=== PATIENT | male | born 1935 | race Caucasian/White ===

== ENCOUNTER 2023-08-05 16:25 | Inpatient (IN) | payer OTHER ==
[~2023-08-05] VITALS: Ht 180.3 cm; Wt 97.2 kg
[~2023-08-05 16:25] MED LIST: FINA5TAB4 PO; FURO40TA4 PO; LISI40TA16 PO; PRAV20TA3 PO; RIV15T PO; TAMS0.4C36 PO
[2023-08-05] MEDS ORDERED: NITROGLYCERIN 0.4 MG SL TAB SL PRN (17:15)
[2023-08-05] MEDS ORDERED: HYDROcodone-ACET 5/325MG TAB PO PRN (17:15)
[2023-08-05] MEDS ORDERED: ONDANSETRON HCL 4 MG/2 ML VIAL IV PRN (17:15)
[2023-08-05] MEDS ORDERED: MORPHINE SULFATE INJ 2 MG/ml SYRG IV PRN ×2 (17:15)
[2023-08-05] MEDS ORDERED: ACETAMINOPHEN 325 MG TAB PO PRN (17:15)
[2023-08-05 19:28] VITALS: BP 95/40; PULSE 74; RESP 18; TEMP 97.9; O2SAT 99
[2023-08-05 19:36] LABS: % Iron Saturation 21.9 % (20-55)
[2023-08-05] MEDS: cefTRIAXone 1GM/50ML D5W 50 ML IV SCH (20:25)
[2023-08-05 20:34] LABS: INR 1.18 (0.9-1.15); Prothrombin Time 12.4 sec (9.3-11.8)
[2023-08-05] MEDS: PANTOPRAZOLE 40 MG/10 ML VIAL INJ IV SCH (20:58)
[2023-08-05] MEDS: SODIUM CHLORIDE 0.9% 1,000 ML IV SCH (20:58)
[2023-08-05 21:00] VITALS: BP 108/38; PULSE 72; RESP 16; TEMP 98.2; O2SAT 100
[2023-08-05 22:19] VITALS: BP 93/35; PULSE 68; RESP 18; TEMP 98.9
[2023-08-05 22:34] VITALS: BP 92/35; PULSE 73; RESP 20; TEMP 97.6
[2023-08-05 22:37] VITALS: BP 87/34; PULSE 74; RESP 18; TEMP 98.1
[2023-08-06] VITALS (12 sets, daily range): BP systolic 99–137; BP diastolic 37–64; PULSE 63–90; RESP 16–20; TEMP 97.2–98.4; O2SAT 91–99
[2023-08-06 06:40] LABS: Urine Bacteria None Seen /hpf (None Seen)
[2023-08-06 07:08] LABS: Urine Blood Negative /uL (Negative); Urine Clarity Clear (Clear); Urine Color Light-Yellow (Yellow); Urine Hyaline Cast FEW /lpf (0 - 2); Urine Protein, UAD Negative (Negative); Urine Specific Gravity 1.008 (1.001-1.035); Urine Urobilinogen Normal (Negative); Urine WBC 4 /hpf (0 - 3)
[2023-08-06 07:18] LABS: Basophils # (auto) 0.1 10 ^3/uL (0-0.2); Eosinophils # (auto) 0.3 10 ^3/uL (0-0.8); Eosinophils % (auto) 3.8 % (0.0-7.0); Hematocrit 22.7 % (41.0-53.0); Hemoglobin 7.6 g/dL (13.5-17.5); Lymphocytes # (auto) 1.3 10 ^3/uL (0.4-5.4); Lymphocytes % (auto) 16.5 % (10.0-50.0); Mean Corpuscular Hgb Conc. 33.4 g/dL (32.0-36.0); Monocytes # (auto) 0.9 10 ^3/uL (0-1.3); Monocytes % (auto) 11.2 % (0.0-12.0); Neutrophils # (auto) 5.4 10 ^3/uL (1.6-8.6); Neutrophils % (auto) 67.5 % (37.0-80.0); Red Blood Cells 2.44 10^6/uL (4.5-5.90); Red Cell Distribution Width 14.9 % (11.8-14.3); White Blood Cell 7.9 10^3/uL (4.4-10.8)
[2023-08-06 07:42] LABS: Albumin 2.6 g/dL (3.2-4.8); Alkaline Phosphatase 75 U/L (46-116); Anion Gap 6 (5-15); BUN/Creatinine Ratio 29.5 (10.0-20.0); Calcium 8.5 mg/dL (8.5-10.1); Carbon Dioxide 29 mmol/L (20-30); Chloride 101 mmol/L (98-107); Glucose 89 mg/dL (74-106); Potassium 4.3 mmol/L (3.5-5.1); Sodium 136 mmol/L (136-145)
[2023-08-06 07:43] LABS: Aspartate Aminotransferase 12 U/L (13-40); Bilirubin, Total 0.4 mg/dL (0.2-1.0)
[2023-08-06 07:48] LABS: Alanine Aminotransferase < 9 U/L (7-40)
[2023-08-06 07:51] LABS: Blood Urea Nitrogen 82 mg/dL (9-23)
[2023-08-06] MEDS ORDERED: diphenhdrAMINE HCL 50 MG/1 ML VL ONE (09:32)
[2023-08-06] MEDS ORDERED: SODIUM CHLORIDE LOCK 10 ML ONE (09:32)
[2023-08-06] MEDS: LIDOCAINE VISCOUS 2% 15ML UD ONE (13:31)
[2023-08-06] MEDS: MIDAZOLAM HCL 5 MG/ML-1ML VIAL ONE (13:36)
[2023-08-06] MEDS: fentaNYL CITRATE 100 MCG/2 ML VL ONE (13:36)
[2023-08-06] MEDS ORDERED: IRON SUCROSE COMPLEX 100 ML IV SCH (14:00)
[2023-08-06] MEDS: SUCRALFATE 1 GM/10 ML ORAL SUSP GT SCH (21:01)
[2023-08-07] VITALS (8 sets, daily range): BP systolic 103–127; BP diastolic 45–55; PULSE 74–84; RESP 16–20; TEMP 97.9–98.5; O2SAT 92–100
[2023-08-07 07:25] LABS: Anion Gap 4 (5-15); Carbon Dioxide 29 mmol/L (20-30); Chloride 106 mmol/L (98-107); Potassium 4.5 mmol/L (3.5-5.1); Sodium 139 mmol/L (136-145)
[2023-08-07 07:26] LABS: Calcium 8.7 mg/dL (8.5-10.1)
[2023-08-07 07:31] LABS: BUN/Creatinine Ratio 26.8 (10.0-20.0); Glucose 89 mg/dL (74-106)
[2023-08-07 07:35] LABS: Blood Urea Nitrogen 62 mg/dL (9-23)
[2023-08-07 07:36] LABS: Basophils # (auto) 0.1 10 ^3/uL (0-0.2); Basophils % (auto) 0.7 % (0.0-2.0); Eosinophils # (auto) 0.2 10 ^3/uL (0-0.8); Eosinophils % (auto) 2.4 % (0.0-7.0); Hematocrit 24.9 % (41.0-53.0); Hemoglobin 7.9 g/dL (13.5-17.5); Lymphocytes # (auto) 0.9 10 ^3/uL (0.4-5.4); Lymphocytes % (auto) 9.2 % (10.0-50.0); Mean Corpuscular Hemoglobin 30.5 pg (28.0-32.0); Mean Corpuscular Hgb Conc. 31.7 g/dL (32.0-36.0); Mean Corpuscular Volume 96.2 fL (80.0-100.0); Monocytes # (auto) 0.9 10 ^3/uL (0-1.3); Monocytes % (auto) 9.3 % (0.0-12.0); Neutrophils # (auto) 7.9 10 ^3/uL (1.6-8.6); Neutrophils % (auto) 78.4 % (37.0-80.0); Nucleated Red Blood Cells % 0.2 %; Red Blood Cells 2.59 10^6/uL (4.5-5.90); Red Cell Distribution Width 14.9 % (11.8-14.3)
[2023-08-07] MEDS: SODIUM FERR GLUC 62.5MG/5ML 125 MG in SODIUM CHL 0.9% 100 ML IV SCH (12:00)
[2023-08-07] MEDS: SODIUM CHLORIDE 0.9% 1,000 ML IV ONE (13:59)
[2023-08-08 01:00] VITALS: BP 113/43; PULSE 77; RESP 17; TEMP 98.1; O2SAT 96
[2023-08-08 05:00] VITALS: BP 126/56; PULSE 93; RESP 16; TEMP 98; O2SAT 94
[2023-08-08 07:12] LABS: Chloride 108 mmol/L (98-107); Potassium 4.2 mmol/L (3.5-5.1); Sodium 143 mmol/L (136-145)
[2023-08-08 07:13] LABS: Anion Gap 3 (5-15); Carbon Dioxide 32 mmol/L (20-30)
[2023-08-08 07:14] LABS: Calcium 8.6 mg/dL (8.5-10.1)
[2023-08-08 07:18] LABS: Glucose 105 mg/dL (74-106)
[2023-08-08 07:19] LABS: BUN/Creatinine Ratio 32.3 (10.0-20.0); Blood Urea Nitrogen 62 mg/dL (9-23)
[2023-08-08 08:00] VITALS: PULSE 79; PULSE 81; RESP 16; O2SAT 98
[2023-08-08 09:00] VITALS: BP 90/53; PULSE 81; RESP 16; TEMP 98.3; O2SAT 98
[2023-08-08 13:00] VITALS: BP 124/55; PULSE 75; RESP 16; TEMP 98.2; O2SAT 98
[2023-08-08] MEDS ORDERED: PANT40TA2 PO (14:24)
[2023-08-08] MEDS ORDERED: SUCR1SUS26 GT (14:24)
[2023-08-08 15:43] VITALS: BP 104/68; PULSE 76; RESP 20; TEMP 97.5; O2SAT 97
== END 2023-08-08 16:20 | disposition home or self-care (01) | DRG 368 ==
LOC: CENTRAL 16:25 → TELE-CENTR 08-06 18:01
PROVIDERS: ADMIT Internal Medicine; ATTEND Internal Medicine
PROC: 30233N1 Transfusion of Nonautologous Red Blood Cells into Peripheral Vein, Percutaneous Approach (ICD-10-PCS; principal; 2023-08-05)
PROC: 0DJ08ZZ Inspection of Upper Intestinal Tract, Via Natural or Artificial Opening Endoscopic (ICD-10-PCS; 2023-08-06)
DX: K20.91 Esophagitis, unspecified with bleeding (principal); J96.21 Acute and chronic respiratory failure with hypoxia; D62 Acute posthemorrhagic anemia; N17.9 Acute kidney failure, unspecified; I95.9 Hypotension, unspecified; D50.9 Iron deficiency anemia, unspecified; I12.9 Hypertensive chronic kidney disease with stage 1 through stage 4 chronic kidney disease, or unspecified chronic kidney disease; E78.5 Hyperlipidemia, unspecified; N18.32 Chronic kidney disease, stage 3b; E88.09 Other disorders of plasma-protein metabolism, not elsewhere classified; N47.8 Other disorders of prepuce; K44.9 Diaphragmatic hernia without obstruction or gangrene; N40.0 Benign prostatic hyperplasia without lower urinary tract symptoms; Z85.118 Personal history of other malignant neoplasm of bronchus and lung; Z85.820 Personal history of malignant melanoma of skin; Z86.718 Personal history of other venous thrombosis and embolism; Z79.01 Long term (current) use of anticoagulants
CPT/HCPCS: 36415; 43235; 76775; 80048; 80053; 81001; 82270; 83540; 83550; 85025; 85610; 86850; 86900; 86901; 86920; 87081; 87086; 97110; 97116; 97163; C9113; G0378; J2250

== ENCOUNTER 2023-08-17 11:10 | Inpatient (IN) | payer OTHER ==
[~2023-08-17] VITALS: Ht 172.7 cm; Wt 104.1 kg
[~2023-08-17 11:10] MED LIST changes: +PANT40TA2 PO; -RIV15T PO; +SUCR1SUS26 GT
[2023-08-17] MEDS: SODIUM CHLORIDE 0.9% 1,000 ML IV ONE (11:44)
[2023-08-17 12:03] LABS: Chloride 100 mmol/L (98-107); Potassium 3.2 mmol/L (3.5-5.1); Sodium 140 mmol/L (136-145)
[2023-08-17 12:04] LABS: Anion Gap 9 (5-15); Carbon Dioxide 31 mmol/L (20-30)
[2023-08-17 12:05] LABS: Calcium 9.1 mg/dL (8.5-10.1)
[2023-08-17 12:09] LABS: Glucose 105 mg/dL (74-106)
[2023-08-17 12:10] LABS: BUN/Creatinine Ratio 22.6 (10.0-20.0); Blood Urea Nitrogen 66 mg/dL (9-23)
[2023-08-17 12:19] LABS: Lactic Acid w/Reflex 2.3 mmol/L (0.4-2.0)
[2023-08-17 12:23] LABS: Basophils # (auto) 0 10 ^3/uL (0-0.2); Basophils % (auto) 0.4 % (0.0-2.0); Eosinophils # (auto) 0.3 10 ^3/uL (0-0.8); Eosinophils % (auto) 2.9 % (0.0-7.0); Hematocrit 29.3 % (41.0-53.0); Hemoglobin 9.8 g/dL (13.5-17.5); Lymphocytes # (auto) 0.9 10 ^3/uL (0.4-5.4); Lymphocytes % (auto) 10.4 % (10.0-50.0); Mean Corpuscular Hemoglobin 31.3 pg (28.0-32.0); Mean Corpuscular Hgb Conc. 33.3 g/dL (32.0-36.0); Mean Corpuscular Volume 93.9 fL (80.0-100.0); Monocytes # (auto) 0.7 10 ^3/uL (0-1.3); Monocytes % (auto) 7.6 % (0.0-12.0); Neutrophils % (auto) 78.7 % (37.0-80.0); Nucleated Red Blood Cells % 0.1 %; Red Blood Cells 3.12 10^6/uL (4.5-5.90); Red Cell Distribution Width 14.5 % (11.8-14.3); White Blood Cell 8.9 10^3/uL (4.4-10.8)
[2023-08-17 12:53] LABS: COVID19 ANTIGEN SOFIA FIA NEGATIVE (NEGATIVE)
[2023-08-17 13:05] VITALS: PULSE 77; RESP 20; O2SAT 94
[2023-08-17] MEDS ORDERED: MORPHINE SULFATE INJ 2 MG/ml SYRG IV PRN ×2 (14:30)
[2023-08-17] MEDS ORDERED: NITROGLYCERIN 0.4 MG SL TAB SL PRN (14:30)
[2023-08-17] MEDS ORDERED: ACETAMINOPHEN 325 MG TAB PO PRN (14:30)
[2023-08-17] MEDS ORDERED: ONDANSETRON HCL 4 MG/2 ML VIAL IV PRN (14:30)
[2023-08-17] MEDS: SODIUM CHLORIDE 0.9% 1,000 ML IV SCH (14:34)
[2023-08-17 16:10] LABS: Urine Amorphous Crystal FEW /hpf (None Seen); Urine Bacteria FEW /hpf (None Seen); Urine Blood Negative /uL (Negative); Urine Clarity Turbid (Clear); Urine Color Light-Yellow (Yellow); Urine Hyaline Cast MOD /lpf (0 - 2); Urine Mucus FEW (None Seen); Urine Protein, UAD TRACE (Negative); Urine Specific Gravity 1.013 (1.001-1.035); Urine Urobilinogen Normal (Negative); Urine WBC 21 /hpf (0 - 3)
[2023-08-17] MEDS: HYDROcodone-ACET 5/325MG TAB PO PRN (18:01)
[2023-08-17 19:25] VITALS: PULSE 77; RESP 20; O2SAT 94
[2023-08-17] MEDS: cefTRIAXone 1GM/50ML D5W 50 ML IV SCH (22:12)
[2023-08-18 05:06] LABS: Basophils # (auto) 0 10 ^3/uL (0-0.2); Basophils % (auto) 0.6 % (0.0-2.0); Eosinophils # (auto) 0.5 10 ^3/uL (0-0.8); Eosinophils % (auto) 6.5 % (0.0-7.0); Hematocrit 26.3 % (41.0-53.0); Hemoglobin 8.7 g/dL (13.5-17.5); Lymphocytes # (auto) 1.2 10 ^3/uL (0.4-5.4); Lymphocytes % (auto) 15.5 % (10.0-50.0); Mean Corpuscular Hemoglobin 30.8 pg (28.0-32.0); Mean Corpuscular Hgb Conc. 33.1 g/dL (32.0-36.0); Mean Corpuscular Volume 93.1 fL (80.0-100.0); Monocytes # (auto) 0.7 10 ^3/uL (0-1.3); Monocytes % (auto) 9.7 % (0.0-12.0); Neutrophils # (auto) 5.1 10 ^3/uL (1.6-8.6); Neutrophils % (auto) 67.7 % (37.0-80.0); Nucleated Red Blood Cells % 0.1 %; Red Blood Cells 2.82 10^6/uL (4.5-5.90); Red Cell Distribution Width 14.3 % (11.8-14.3); White Blood Cell 7.5 10^3/uL (4.4-10.8)
[2023-08-18 05:16] LABS: Alanine Aminotransferase 10 U/L (7-40); Albumin 2.9 g/dL (3.2-4.8); Alkaline Phosphatase 67 U/L (46-116); Anion Gap 9 (5-15); Aspartate Aminotransferase 29 U/L (13-40); BUN/Creatinine Ratio 20.4 (10.0-20.0); Calcium 8.8 mg/dL (8.5-10.1); Carbon Dioxide 29 mmol/L (20-30); Chloride 102 mmol/L (98-107); Glucose 96 mg/dL (74-106); Potassium 2.9 mmol/L (3.5-5.1); Sodium 140 mmol/L (136-145)
[2023-08-18 05:17] LABS: Bilirubin, Total 0.3 mg/dL (0.2-1.0)
[2023-08-18 05:18] LABS: Blood Urea Nitrogen 53 mg/dL (9-23)
[2023-08-18 07:39] VITALS: PULSE 68; RESP 16; O2SAT 93
[2023-08-18 15:35] VITALS: BP 121/56; PULSE 77; RESP 17; TEMP 98.5; O2SAT 97
[2023-08-18 17:00] VITALS: BP 121/56; PULSE 77; RESP 17; TEMP 98.5; O2SAT 97
[2023-08-18 20:00] VITALS: PULSE 64; PULSE 76; RESP 20; O2SAT 98
[2023-08-18 21:00] VITALS: BP 124/45; PULSE 64; RESP 20; TEMP 98; O2SAT 98
[2023-08-19] VITALS (9 sets, daily range): BP systolic 105–132; BP diastolic 43–56; PULSE 60–93; RESP 15–18; TEMP 97.8–98.8; O2SAT 93–98
[2023-08-19] MEDS: POTASSIUM CHL 20 Meq TABLET PO ONE (16:11)
[2023-08-20 01:00] VITALS: BP 137/50; PULSE 70; RESP 17; TEMP 98.5; O2SAT 97
[2023-08-20 05:00] VITALS: BP 115/42; PULSE 77; RESP 17; TEMP 98.3; O2SAT 97
[2023-08-20 07:26] LABS: Anion Gap 2 (5-15); Carbon Dioxide 37 mmol/L (20-30); Chloride 105 mmol/L (98-107); Potassium 3.3 mmol/L (3.5-5.1); Sodium 144 mmol/L (136-145)
[2023-08-20 07:32] LABS: BUN/Creatinine Ratio 21.1 (10.0-20.0); Blood Urea Nitrogen 40 mg/dL (9-23); Glucose 109 mg/dL (74-106)
[2023-08-20 08:00] VITALS: PULSE 65; PULSE 67; RESP 18; O2SAT 99
[2023-08-20 09:00] VITALS: BP 123/47; PULSE 67; RESP 18; TEMP 98.2; O2SAT 99
[2023-08-20 12:42] VITALS: BP 135/50; PULSE 72; RESP 18; TEMP 98.3; O2SAT 97
[2023-08-20 17:16] VITALS: BP 121/52; PULSE 75; RESP 18; TEMP 99.1; O2SAT 98
== END 2023-08-20 19:40 | DRG 682 ==
LOC: EDBD 11:10 → ER 11:10 → EDUNIT# 11:10 → TELE 14:26 → ER 14:26 → TELE-CENTR 08-18 15:47
PROVIDERS: ADMIT Internal Medicine; ATTEND Internal Medicine
DX: N17.0 Acute kidney failure with tubular necrosis (principal); G93.41 Metabolic encephalopathy; J96.21 Acute and chronic respiratory failure with hypoxia; I21.A1 Myocardial infarction type 2; N39.0 Urinary tract infection, site not specified; J98.11 Atelectasis; J90 Pleural effusion, not elsewhere classified; I13.0 Hypertensive heart and chronic kidney disease with heart failure and stage 1 through stage 4 chronic kidney disease, or unspecified chronic kidney disease; E87.20 Acidosis, unspecified; E86.0 Dehydration; D64.9 Anemia, unspecified; N18.9 Chronic kidney disease, unspecified; E78.5 Hyperlipidemia, unspecified; K21.9 Gastro-esophageal reflux disease without esophagitis; Z20.822 Contact with and (suspected) exposure to COVID-19; E66.9 Obesity, unspecified; N40.0 Benign prostatic hyperplasia without lower urinary tract symptoms; E77.8 Other disorders of glycoprotein metabolism; I50.9 Heart failure, unspecified; Z85.118 Personal history of other malignant neoplasm of bronchus and lung; Z86.718 Personal history of other venous thrombosis and embolism; Z99.81 Dependence on supplemental oxygen; Z87.891 Personal history of nicotine dependence; Z68.34 Body mass index [BMI] 34.0-34.9, adult; Z90.2 Acquired absence of lung [part of]
CPT/HCPCS: 36415; 71045; 80048; 80053; 81001; 83605; 83735; 84484; 85025; 87040; 87081; 87086; 87426; 93005; 93306; 96360; 97163; G0378

== ENCOUNTER 2023-09-29 16:39 | Inpatient (IN) | payer OTHER ==
[~2023-09-29] VITALS: Ht 172.7 cm; Wt 95.0 kg
[~2023-09-29 16:39] MED LIST changes: -FURO40TA4 PO
[2023-09-29] MEDS: SODIUM CHLORIDE 0.9% 1,000 ML IV ONE (17:00)
[2023-09-29 17:39] VITALS: PULSE 86; RESP 18; O2SAT 96
[2023-09-29 17:48] LABS: Basophils # (auto) 0 10 ^3/uL (0-0.2); Basophils % (auto) 0.6 % (0.0-2.0); Eosinophils # (auto) 0.2 10 ^3/uL (0-0.8); Eosinophils % (auto) 2.6 % (0.0-7.0); Hemoglobin 8.9 g/dL (13.5-17.5); Lymphocytes % (auto) 14.2 % (10.0-50.0); Mean Corpuscular Hemoglobin 28.4 pg (28.0-32.0); Monocytes # (auto) 0.6 10 ^3/uL (0-1.3); Monocytes % (auto) 7.9 % (0.0-12.0); Neutrophils # (auto) 5.4 10 ^3/uL (1.6-8.6); Neutrophils % (auto) 74.7 % (37.0-80.0); Red Blood Cells 3.14 10^6/uL (4.5-5.90); Red Cell Distribution Width 15.5 % (11.8-14.3); White Blood Cell 7.2 10^3/uL (4.4-10.8)
[2023-09-29 18:07] LABS: Albumin 3.5 g/dL (3.2-4.8); Alkaline Phosphatase 67 U/L (46-116); Anion Gap 7 (5-15); Aspartate Aminotransferase < 8 U/L (13-40); Bilirubin, Total 0.3 mg/dL (0.2-1.0); Blood Urea Nitrogen 56 mg/dL (9-23); Calcium 9.1 mg/dL (8.7-10.4); Carbon Dioxide 27 mmol/L (20-30); Chloride 108 mmol/L (98-107); Glucose 131 mg/dL (74-106); Potassium 5.5 mmol/L (3.5-5.1); Sodium 142 mmol/L (136-145); Total Protein 6.1 g/dL (5.7-8.2)
[2023-09-29 18:14] LABS: Alanine Aminotransferase 9 U/L (7-40)
[2023-09-29 18:20] LABS: Lactic Acid w/Reflex 2.3 mmol/L (0.4-2.0)
[2023-09-29] MEDS: ALBUTEROL SULF 2.5 MG/0.5ML(0.5%) NEB SOLN NEB ONE (18:42)
[2023-09-29] MEDS: DEXTROSE (50%) 50ML SYRG IV ONE (18:53)
[2023-09-29] MEDS: InsuLIN REG 1unit/0.01ml Soln (100units/ml) IV ONE (18:54)
[2023-09-29] MEDS: FUROSEMIDE 20 MG/2 ML VIAL IV ONE (18:54)
[2023-09-29] MEDS: NOREPINEPHRINE 8 MG/250ML KIT 250 ML IV ONE (21:04)
[2023-09-29] MEDS: NOREPINEPHRINE 8 MG/250ML KIT 250 ML IV SCH (21:13)
[2023-09-29 23:17] LABS: Urine Bacteria FEW /hpf (None Seen); Urine Blood 2+ /uL (Negative); Urine Clarity Ex.Turbid (Clear); Urine Mucus FEW (None Seen); Urine Protein, UAD 2+ (Negative); Urine Specific Gravity 1.014 (1.001-1.035); Urine Urobilinogen Normal (Negative); Urine WBC 4331 /hpf (0 - 3); Urine WBC Clumps PRESENT /hpf (None Seen); Urine pH 5.5 (5.0-9.0)
[2023-09-29 23:18] LABS: Urine Color Yellow (Yellow)
[2023-09-29 23:51] LABS: Lactic Acid w/Reflex 6.7 mmol/L (0.4-2.0)
[2023-09-30] VITALS (72 sets, daily range): BP systolic 89–137; BP diastolic 39–84; PULSE 66–117; RESP 14–36; TEMP 97.4–98.6; O2SAT 90–100
[2023-09-30] MEDS ORDERED: MORPHINE SULFATE 4 MG/ML SYR/VIAL IV PRN (00:15)
[2023-09-30] MEDS ORDERED: MORPHINE SULFATE INJ 2 MG/ml SYRG IV PRN (00:15)
[2023-09-30] MEDS ORDERED: NITROGLYCERIN 0.4 MG SL TAB SL PRN (00:15)
[2023-09-30] MEDS ORDERED: ACETAMINOPHEN 325 MG TAB PO PRN (00:15)
[2023-09-30] MEDS: LACTATED RINGER'S 2,050 ML IV ONE (00:45)
[2023-09-30] MEDS: AZITHROMYCIN 500MG/ 250ML 250 ML IV SCH (02:15)
[2023-09-30] MEDS: PHENYLEPHRINE IV 250 ML IV SCH ×2 (02:40)
[2023-09-30] MEDS: LACTATED RINGER'S 1,000 ML IV SCH (02:45)
[2023-09-30 06:11] LABS: Rapid Influenza A Negative (Negative); Rapid Influenza B Negative (Negative)
[2023-09-30 06:12] LABS: COVID19 ANTIGEN SOFIA FIA NEGATIVE (NEGATIVE)
[2023-09-30 06:33] LABS: Lactic Acid w/Reflex 4.2 mmol/L (0.4-2.0)
[2023-09-30 06:42] LABS: Alkaline Phosphatase 60 U/L (46-116); Anion Gap 7 (5-15); Aspartate Aminotransferase 9 U/L (13-40); BUN/Creatinine Ratio 16.5 (10.0-20.0); Blood Urea Nitrogen 52 mg/dL (9-23); Calcium 8.5 mg/dL (8.7-10.4); Carbon Dioxide 26 mmol/L (20-30); Chloride 107 mmol/L (98-107); Glucose 86 mg/dL (74-106); Potassium 4.8 mmol/L (3.5-5.1); Sodium 140 mmol/L (136-145)
[2023-09-30 06:43] LABS: Bilirubin, Total 0.3 mg/dL (0.2-1.0); Total Protein 5.4 g/dL (5.7-8.2)
[2023-09-30 06:44] LABS: Alanine Aminotransferase < 9 U/L (7-40)
[2023-09-30] MEDS: SUCRALFATE 1 GM/10 ML ORAL SUSP GT SCH (06:52)
[2023-09-30] MEDS: PIPERACILLIN-TAZO 4.5GM 100 ML IV SCH (06:52)
[2023-09-30 09:47] LABS: Magnesium 1.9 mg/dL (1.6-2.6)
[2023-09-30 09:48] LABS: Phosphorus 3.3 mg/dL (2.4-5.1)
[2023-09-30] MEDS: SODIUM CHLORIDE 0.9% 1,000 ML IV SCH (09:49)
[2023-09-30] MEDS ORDERED: HEPARIN SODIUM (PORCINE) 5000 UNITS/ML 1ML VIAL SC SCH (10:00)
[2023-09-30] MEDS: ENOXAPARIN SOD 100 MG/1 ML SYRINGE SC SCH (10:46)
[2023-09-30] MEDS: ASPirin 325 MG TAB PO ONE (10:47)
[2023-09-30] MEDS: PANTOPRAZOLE 40 MG/10 ML VIAL INJ IV SCH (11:24)
[2023-09-30] MEDS: PRAVASTATIN SODIUM 20 MG TAB PO SCH (11:24)
[2023-09-30] MEDS: FINASTERIDE 5 MG TAB PO SCH (11:25)
[2023-09-30 11:29] LABS: Basophils # (auto) 0.1 10 ^3/uL (0-0.2); Basophils % (auto) 0.8 % (0.0-2.0); Eosinophils # (auto) 0.2 10 ^3/uL (0-0.8); Eosinophils % (auto) 2.3 % (0.0-7.0); Hematocrit 26.6 % (41.0-53.0); Hemoglobin 8.6 g/dL (13.5-17.5); Lymphocytes # (auto) 1.9 10 ^3/uL (0.4-5.4); Mean Corpuscular Hemoglobin 28.8 pg (28.0-32.0); Mean Corpuscular Hgb Conc. 32.1 g/dL (32.0-36.0); Mean Corpuscular Volume 89.5 fL (80.0-100.0); Monocytes % (auto) 11.8 % (0.0-12.0); Neutrophils # (auto) 5.4 10 ^3/uL (1.6-8.6); Neutrophils % (auto) 63.1 % (37.0-80.0); Nucleated Red Blood Cells % 0.1 %; Red Blood Cells 2.98 10^6/uL (4.5-5.90); Red Cell Distribution Width 16.1 % (11.8-14.3); White Blood Cell 8.6 10^3/uL (4.4-10.8)
[2023-09-30 11:49] LABS: % Iron Saturation 14.4 % (20-55)
[2023-09-30 14:22] LABS: Protein, Urine 57.2 mg/dL (0.0-11.9)
[2023-09-30 14:25] LABS: Creatinine, Urine 30.67 mg/dL (30.0-125.0)
[2023-09-30] MEDS: PIPERACILLIN-TAZOB 3.375GM 100 ML IV SCH (16:45)
[2023-09-30] MEDS: TAMSULOSIN HYDROCHLORIDE 0.4 MG CAP PO SCH (17:28)
[2023-10-01] VITALS (60 sets, daily range): BP systolic 88–135; BP diastolic 36–60; PULSE 63–117; RESP 14–31; TEMP 97.7–99; O2SAT 92–100
[2023-10-01 04:56] LABS: Basophils # (auto) 0.1 10 ^3/uL (0-0.2); Eosinophils # (auto) 0.5 10 ^3/uL (0-0.8); Mean Corpuscular Hgb Conc. 32.6 g/dL (32.0-36.0); Monocytes # (auto) 0.7 10 ^3/uL (0-1.3); Red Cell Distribution Width 15.8 % (11.8-14.3)
[2023-10-01 04:58] LABS: Basophils % (auto) 1.1 % (0.0-2.0); Eosinophils % (auto) 7.5 % (0.0-7.0); Hematocrit 23.7 % (41.0-53.0); Hemoglobin 7.7 g/dL (13.5-17.5); Lymphocytes # (auto) 1.3 10 ^3/uL (0.4-5.4); Lymphocytes % (auto) 20.1 % (10.0-50.0); Mean Corpuscular Hemoglobin 29.7 pg (28.0-32.0); Monocytes % (auto) 11.3 % (0.0-12.0); Neutrophils # (auto) 3.7 10 ^3/uL (1.6-8.6); Red Blood Cells 2.61 10^6/uL (4.5-5.90); White Blood Cell 6.3 10^3/uL (4.4-10.8)
[2023-10-01 05:04] LABS: Alkaline Phosphatase 56 U/L (46-116); Anion Gap 3 (5-15); Aspartate Aminotransferase 9 U/L (13-40); BUN/Creatinine Ratio 12.5 (10.0-20.0); Calcium 8.2 mg/dL (8.7-10.4); Carbon Dioxide 26 mmol/L (20-30); Chloride 112 mmol/L (98-107); Glucose 94 mg/dL (74-106); Potassium 5.2 mmol/L (3.5-5.1); Sodium 141 mmol/L (136-145)
[2023-10-01 05:05] LABS: Albumin 2.6 g/dL (3.2-4.8); Bilirubin, Total 0.3 mg/dL (0.2-1.0)
[2023-10-01 05:12] LABS: Alanine Aminotransferase < 9 U/L (7-40); Blood Urea Nitrogen 39 mg/dL (9-23)
[2023-10-01] MEDS: ALBUTEROL SULF 2.5 MG/0.5ML(0.5%) NEB SOLN NEB ONE (09:17)
[2023-10-01] MEDS: ASPirin 81 mg TAB PO SCH (10:18)
[2023-10-01] MEDS: SODIUM ZIRCONIUM CYCL 10 GM PAK PO ONE (12:00)
[2023-10-01] MEDS: MIDODRINE HCL 10 MG TAB PO SCH (13:35)
[2023-10-01] MEDS ORDERED: OXYB5TAB14 PO (15:29)
[2023-10-01] MEDS ORDERED: RIVA15TA PO (15:29)
[2023-10-02] VITALS (20 sets, daily range): BP systolic 106–149; BP diastolic 45–69; PULSE 60–78; RESP 14–27; TEMP 97.4–98.3; O2SAT 96–100
[2023-10-02 03:53] LABS: Basophils # (auto) 0.1 10 ^3/uL (0-0.2); Eosinophils # (auto) 0.5 10 ^3/uL (0-0.8); Neutrophils # (auto) 2.7 10 ^3/uL (1.6-8.6)
[2023-10-02 03:59] LABS: Basophils % (auto) 1.2 % (0.0-2.0); Eosinophils % (auto) 10.2 % (0.0-7.0); Hematocrit 22.7 % (41.0-53.0); Hemoglobin 7.5 g/dL (13.5-17.5); Lymphocytes # (auto) 1.4 10 ^3/uL (0.4-5.4); Lymphocytes % (auto) 25.8 % (10.0-50.0); Mean Corpuscular Hemoglobin 29.5 pg (28.0-32.0); Mean Corpuscular Hgb Conc. 32.8 g/dL (32.0-36.0); Monocytes # (auto) 0.6 10 ^3/uL (0-1.3); Monocytes % (auto) 11.7 % (0.0-12.0); Neutrophils % (auto) 51.1 % (37.0-80.0); Red Blood Cells 2.52 10^6/uL (4.5-5.90); Red Cell Distribution Width 15.8 % (11.8-14.3); White Blood Cell 5.4 10^3/uL (4.4-10.8)
[2023-10-02 04:11] LABS: Albumin 2.7 g/dL (3.2-4.8); Alkaline Phosphatase 52 U/L (46-116); Anion Gap 6 (5-15); Aspartate Aminotransferase < 8 U/L (13-40); BUN/Creatinine Ratio 12.2 (10.0-20.0); Bilirubin, Total 0.3 mg/dL (0.2-1.0); Blood Urea Nitrogen 33 mg/dL (9-23); Calcium 8.4 mg/dL (8.7-10.4); Carbon Dioxide 24 mmol/L (20-30); Chloride 111 mmol/L (98-107); Glucose 86 mg/dL (74-106); Potassium 4.7 mmol/L (3.5-5.1); Sodium 141 mmol/L (136-145); Total Protein 4.9 g/dL (5.7-8.2)
[2023-10-02 04:17] LABS: Alanine Aminotransferase < 9 U/L (7-40)
[2023-10-02] MEDS: SODIUM CHLORIDE 0.9% 1,000 ML IV SCH (17:01)
[2023-10-03] VITALS (10 sets, daily range): BP systolic 124–151; BP diastolic 56–74; PULSE 64–84; RESP 17–22; TEMP 97.1–98.5; O2SAT 97–99
[2023-10-03] MEDS: MIDODRINE HCL 10 MG TAB PO SCH (16:00)
[2023-10-03] MEDS: FERROUS SULFATE 325mg EC TAB PO SCH (17:37)
[2023-10-03 17:45] LABS: Chloride 111 mmol/L (98-107); Potassium 4.6 mmol/L (3.5-5.1); Sodium 142 mmol/L (136-145)
[2023-10-03 17:47] LABS: Anion Gap 5 (5-15); Calcium 8.6 mg/dL (8.7-10.4); Carbon Dioxide 26 mmol/L (20-30)
[2023-10-03 17:52] LABS: BUN/Creatinine Ratio 10.5 (10.0-20.0); Blood Urea Nitrogen 25 mg/dL (9-23); Glucose 89 mg/dL (74-106)
[2023-10-04] VITALS (7 sets, daily range): BP systolic 120–160; BP diastolic 58–80; PULSE 69–78; RESP 18–22; TEMP 97.6–98.2; O2SAT 97–100
[2023-10-04] MEDS: POLYETHYLENE GLYCOL 17 GM PWDR PO SCH (09:44)
[2023-10-04] MEDS ORDERED: ASPI-325 PO (12:05)
[2023-10-04] MEDS ORDERED: CEPH500C PO (12:09)
[2023-10-04] MEDS ORDERED: RIV20T PO ×2 (14:38)
== END 2023-10-04 18:30 | disposition hospice, home (50) | DRG 871 ==
LOC: EDBD 16:39 → EDUNIT# 16:39 → ER 16:39 → TELE 09-30 00:19 → ICU WEST 09-30 03:17 → TELE-WESTW 10-02 15:15
PROVIDERS: ADMIT Nurse Practitioner; ATTEND Nurse Practitioner
DX: A41.9 Sepsis, unspecified organism (principal); I21.4 Non-ST elevation (NSTEMI) myocardial infarction; J96.21 Acute and chronic respiratory failure with hypoxia; R65.21 Severe sepsis with septic shock; E87.20 Acidosis, unspecified; N17.9 Acute kidney failure, unspecified; N30.01 Acute cystitis with hematuria; J98.11 Atelectasis; I82.431 Acute embolism and thrombosis of right popliteal vein; N18.4 Chronic kidney disease, stage 4 (severe); D64.9 Anemia, unspecified; Z20.822 Contact with and (suspected) exposure to COVID-19; E66.9 Obesity, unspecified; E87.5 Hyperkalemia; I37.1 Nonrheumatic pulmonary valve insufficiency; I44.0 Atrioventricular block, first degree; I12.9 Hypertensive chronic kidney disease with stage 1 through stage 4 chronic kidney disease, or unspecified chronic kidney disease; E78.5 Hyperlipidemia, unspecified; F03.90 Unspecified dementia, unspecified severity, without behavioral disturbance, psychotic disturbance, mood disturbance, and anxiety; I45.10 Unspecified right bundle-branch block; I27.20 Pulmonary hypertension, unspecified; J44.9 Chronic obstructive pulmonary disease, unspecified; L97.519 Non-pressure chronic ulcer of other part of right foot with unspecified severity; K21.9 Gastro-esophageal reflux disease without esophagitis; Z51.5 Encounter for palliative care; Z86.718 Personal history of other venous thrombosis and embolism; Z85.820 Personal history of malignant melanoma of skin; Z85.118 Personal history of other malignant neoplasm of bronchus and lung; Z87.891 Personal history of nicotine dependence; Z79.899 Other long term (current) drug therapy; Z79.82 Long term (current) use of aspirin; Z99.81 Dependence on supplemental oxygen; Z68.30 Body mass index [BMI] 30.0-30.9, adult
CPT/HCPCS: 36415; 70450; 71045; 71250; 78582; 80048; 80053; 81001; 82550; 82570; 82728; 83540; 83550; 83605; 83735; 83880; 84100; 84132; 84156; 84300; 84484; 85025; 85379; 87040; 87081; 87086; 87088; 87186; 87205; 87426; 87804; 93005; 93306; 93970; 94640; 96361; 96374; 96375; 99291; G0378; J1815; J2470; J2543